=== PATIENT | female | born 1985 | race Caucasian/White ===

== ENCOUNTER 2017-11-02 20:55 | Emergency (ER) | payer OTHER ==
[2017-11-03 00:01] LABS: BASOPHIL % 0.5 % (0-2); PLATELET COUNT 309 x10^3mcL (130-400)
[2017-11-03 00:05] LABS: RED CELL DISTRIBUTION WIDTH 14.7 % (11.5-14.5)
[2017-11-03 00:15] LABS: CARBON DIOXIDE 21.5 mmol/L (21-32); CHLORIDE SERUM 104 mmol/L (98-107); CREATININE SERUM 0.6 mg/dL (0.6-1.0); GFR1 > 60 mL/min; GLUCOSE SERUM 145 mg/dL (74-106); POTASSIUM SERUM 3.5 mmol/L (3.5-5.1); SODIUM SERUM 135 mmol/L (136-145)
[2017-11-03 00:21] LABS: ALKALINE PHOSPHATASE 72 U/L (46-116); ALT/SGPT 146 U/L (14-59); AMYLASE 37 U/L (25-115); AST/SGOT 106 U/L (15-37); BILIRUBIN TOTAL 0.4 mg/dL (0.20-1.00); LIPASE 84 IU/L (73-393)
[2017-11-03 00:22] LABS: ALBUMIN 3.2 g/dL (3.4-5.0)
[2017-11-03 03:40] VITALS: BP 124/73
== END 2017-11-03 03:40 | disposition home or self-care (01) ==
LOC: ED 20:55
PROVIDERS: Emergency Medicine
DX: R10.13 Epigastric pain (principal); K29.70 Gastritis, unspecified, without bleeding; F10.129 Alcohol abuse with intoxication, unspecified; F41.9 Anxiety disorder, unspecified
CPT/HCPCS: G0480; J2270; J2550; J7030; Q0092

== ENCOUNTER 2019-10-25 01:02 | Inpatient (IN) | payer OTHER ==
[~2019-10-25] VITALS: Ht 152.4 cm; Wt 64.0 kg
[2019-10-25 01:18] VITALS: Ht 152.4 cm; Wt 64.0 kg
[2019-10-25 01:56] LABS: BASOPHIL % 0.4 % (0-2)
[2019-10-25 01:58] LABS: PLATELET COUNT 449 x10^3mcL (130-400)
[2019-10-25 02:04] LABS: CALCIUM 7.8 mg/dL (8.5-10.1); CARBON DIOXIDE 21.4 mmol/L (21-32); CHLORIDE SERUM 95 mmol/L (98-107); CREATININE SERUM 2.2 mg/dL (0.6-1.0); GFR1 27 mL/min; GLUCOSE SERUM 141 mg/dL (74-106); POTASSIUM SERUM 3.3 mmol/L (3.5-5.1); SODIUM SERUM 133 mmol/L (136-145)
[2019-10-25 02:06] LABS: ALBUMIN 3.5 g/dL (3.4-5.0); ALKALINE PHOSPHATASE 72 U/L (46-116); ALT/SGPT 30 U/L (14-59); AST/SGOT 26 U/L (15-37); BILIRUBIN TOTAL 0.45 mg/dL (0.20-1.00); TOTAL PROTEIN, SERUM 7.1 g/dL (6.4-8.2)
[2019-10-25] MEDS ORDERED: PROZAC20 MG PO (03:48)
[2019-10-25 04:18] LABS: MAGNESIUM 1.8 mg/dL (1.8-2.4)
[2019-10-25 04:20] LABS: CHOLESTEROL/HDL RATIO 2.5
[2019-10-25 04:26] LABS: T3 TOTAL 0.93 ng/mL
[2019-10-25 04:28] LABS: FREE T4 1.22 ng/dL (0.76-1.46); FREE THYROXINE INDEX 3.2 ug/dL (1.4-4.5); T4(THYROXINE) 8.3 ug/dL (4.7-13.3)
[2019-10-25 04:44] VITALS: BP 117/70
[2019-10-25 04:57] LABS: AMPHETAMINE QUAL UR NONE DETECTED (See below)
[2019-10-25] MEDS ORDERED: FLUOXETINE HCL20 M2 PO (05:49)
[2019-10-25 06:29] LABS: UA SPECIFIC GRAVITY <=1.005 (1.005-1.035); microscopic required? YES; urine erythrocyte 2+ (NEGATIVE)
[2019-10-25 06:31] LABS: ALBUMIN 3.4 g/dL (3.4-5.0); BILIRUBIN TOTAL 0.6 mg/dL (0.20-1.00); CALCIUM 7.5 mg/dL (8.5-10.1); CARBON DIOXIDE 25.3 mmol/L (21-32); POTASSIUM SERUM 3.5 mmol/L (3.5-5.1); TOTAL PROTEIN, SERUM 6.8 g/dL (6.4-8.2)
[2019-10-25 06:34] LABS: BASOPHIL % 0.2 % (0-2)
[2019-10-25 06:50] LABS: PLATELET COUNT 408 x10^3mcL (130-400); RED CELL DISTRIBUTION WIDTH 15.8 % (11.5-14.5)
[2019-10-25 08:51] VITALS: BP 111/63
[2019-10-25 11:10] LABS: AMYLASE 84 U/L (25-115); LIPASE 288 IU/L (73-393)
[2019-10-25 13:17] VITALS: BP 118/75
[2019-10-25 18:07] VITALS: BP 105/71
[2019-10-25 20:45] VITALS: BP 117/71
[2019-10-26 05:10] VITALS: BP 120/67
[2019-10-26 06:32] LABS: BASOPHIL % 0.6 % (0-2); PLATELET COUNT 313 x10^3mcL (130-400)
[2019-10-26 06:54] LABS: RED CELL DISTRIBUTION WIDTH 15.9 % (11.5-14.5)
[2019-10-26 06:59] LABS: CALCIUM 7.8 mg/dL (8.5-10.1); CARBON DIOXIDE 26.4 mmol/L (21-32); CREATININE SERUM 1.3 mg/dL (0.6-1.0); MAGNESIUM 2.1 mg/dL (1.8-2.4); POTASSIUM SERUM 3.1 mmol/L (3.5-5.1)
[2019-10-26 09:17] VITALS: BP 146/87
[2019-10-26 13:10] VITALS: BP 139/90
[2019-10-26 17:35] VITALS: BP 131/80
[2019-10-26 20:21] VITALS: BP 128/83
[2019-10-27 06:11] VITALS: BP 129/82
[2019-10-27 06:50] LABS: BASOPHIL % 0.4 % (0-2); PLATELET COUNT 304 x10^3mcL (130-400)
[2019-10-27 06:55] LABS: CALCIUM 8.7 mg/dL (8.5-10.1); CHLORIDE SERUM 104 mmol/L (98-107); CREATININE SERUM 0.8 mg/dL (0.6-1.0); GFR1 > 60 mL/min; GLUCOSE SERUM 89 mg/dL (74-106); POTASSIUM SERUM 4.5 mmol/L (3.5-5.1); SODIUM SERUM 139 mmol/L (136-145)
[2019-10-27 07:49] VITALS: BP 129/66
[2019-10-27 08:01] LABS: RED CELL DISTRIBUTION WIDTH 15.7 % (11.5-14.5)
[2019-10-27] MEDS ORDERED: THERA-M CAPLET1 EACH PO (08:04)
[2019-10-27] MEDS ORDERED: FOL1 PO (08:04)
[2019-10-27] MEDS ORDERED: THI100 PO (08:04)
[2019-10-27 10:54] VITALS: BP 129/66
[2019-10-27 12:21] VITALS: BP 147/94
== END 2019-10-27 13:11 | disposition home or self-care (01) | DRG 241 ==
LOC: ED 01:02 → DU 03:22
PROVIDERS: Emergency Medicine; ADMIT Internal Medicine
DX: K29.20 Alcoholic gastritis without bleeding (principal); N17.0 Acute kidney failure with tubular necrosis; G92 Toxic encephalopathy; E72.20 Disorder of urea cycle metabolism, unspecified; F10.239 Alcohol dependence with withdrawal, unspecified; F10.229 Alcohol dependence with intoxication, unspecified; E87.2 Acidosis; E83.39 Other disorders of phosphorus metabolism; T51.2X1A Toxic effect of 2-Propanol, accidental (unintentional), initial encounter; E87.6 Hypokalemia; E87.1 Hypo-osmolality and hyponatremia; Z60.2 Problems related to living alone; F32.9 Major depressive disorder, single episode, unspecified; Y90.0 Blood alcohol level of less than 20 mg/100 ml; Z68.24 Body mass index [BMI] 24.0-24.9, adult; Y92.018 Other place in single-family (private) house as the place of occurrence of the external cause; Z79.899 Other long term (current) drug therapy
CPT/HCPCS: 36600; 84439; C9113; G0378; G0480; J2060; J2405; J3411; J3475; J3490; J7030; Q0092

== ENCOUNTER 2020-04-06 12:08 | Inpatient (IN) | payer OTHER ==
[~2020-04-06] VITALS: Ht 160 cm; Wt 63.5 kg
[~2020-04-06 12:08] MED LIST: FLUOXETINE HCL20 M2 PO; FOL1 PO; PROZAC20 MG PO; THERA-M CAPLET1 EACH PO; THI100 PO
[2020-04-06 12:24] VITALS: Ht 160 cm; Wt 63.5 kg
[2020-04-06 13:13] LABS: CALCIUM 8.2 mg/dL (8.5-10.1); CARBON DIOXIDE 19.3 mmol/L (21-32); CHLORIDE SERUM 99 mmol/L (98-107); CREATININE SERUM 0.7 mg/dL (0.6-1.0); GFR1 > 60 mL/min; GLUCOSE SERUM 106 mg/dL (74-106); POTASSIUM SERUM 3.6 mmol/L (3.5-5.1); SODIUM SERUM 138 mmol/L (136-145)
[2020-04-06 13:17] LABS: ALBUMIN 3.4 g/dL (3.4-5.0); ALKALINE PHOSPHATASE 74 U/L (46-116); ALT/SGPT 61 U/L (14-59); AST/SGOT 61 U/L (15-37); BILIRUBIN TOTAL 0.7 mg/dL (0.20-1.00); LIPASE 280 IU/L (73-393); TOTAL PROTEIN, SERUM 7.7 g/dL (6.4-8.2); TRIGLYCERIDES 200 mg/dL (<150)
[2020-04-06 13:21] LABS: CHOLESTEROL 275 mg/dL (<200); CHOLESTEROL/HDL RATIO 2.3; HDL CHOLESTEROL 118 mg/dL (40-60)
[2020-04-06 13:28] LABS: FREE T4 0.99 ng/dL (0.76-1.46); FREE THYROXINE INDEX 2.3 ug/dL (1.4-4.5); T4(THYROXINE) 7.8 ug/dL (4.7-13.3)
[2020-04-06 13:30] LABS: BASOPHIL % 0.3 % (0-2); PLATELET COUNT 141 x10^3mcL (130-400); RED CELL DISTRIBUTION WIDTH 14.1 % (11.5-14.5); T3 TOTAL 0.79 ng/mL
[2020-04-06 14:06] LABS: UA SPECIFIC GRAVITY <=1.005 (1.005-1.035); microscopic required? YES; urine erythrocyte 3+ (NEGATIVE)
[2020-04-06 14:47] LABS: AMPHETAMINE QUAL UR NONE DETECTED (See below)
[2020-04-06] MEDS ORDERED: PROZAC PO (17:13)
[2020-04-06 18:40] VITALS: BP 118/84
[2020-04-06 20:37] VITALS: BP 120/85
[2020-04-07 07:01] LABS: BASOPHIL % 0.2 % (0-2); RED CELL DISTRIBUTION WIDTH 14.4 % (11.5-14.5)
[2020-04-07 07:34] LABS: ALBUMIN 3.4 g/dL (3.4-5.0); ALKALINE PHOSPHATASE 73 U/L (46-116); ALT/SGPT 61 U/L (14-59); AST/SGOT 51 U/L (15-37); BILIRUBIN TOTAL 1.5 mg/dL (0.20-1.00); CARBON DIOXIDE 23.5 mmol/L (21-32); CHLORIDE SERUM 100 mmol/L (98-107); CREATININE SERUM 0.8 mg/dL (0.6-1.0); GFR1 > 60 mL/min; GLUCOSE SERUM 107 mg/dL (74-106); POTASSIUM SERUM 3.8 mmol/L (3.5-5.1); SODIUM SERUM 137 mmol/L (136-145); TOTAL PROTEIN, SERUM 7.5 g/dL (6.4-8.2)
[2020-04-07 07:38] LABS: PLATELET COUNT 117 x10^3mcL (130-400)
[2020-04-07 13:10] VITALS: BP 140/97
[2020-04-07 16:22] VITALS: BP 130/84
[2020-04-07 20:23] VITALS: BP 115/80; BP 156/62
[2020-04-08 05:39] VITALS: BP 141/93
[2020-04-08 05:52] VITALS: BP 139/50
[2020-04-08 07:11] LABS: BASOPHIL % 0.3 % (0-2)
[2020-04-08 07:36] LABS: PLATELET COUNT 107 x10^3mcL (130-400); RED CELL DISTRIBUTION WIDTH 14.8 % (11.5-14.5)
[2020-04-08 07:51] LABS: ALBUMIN 3.3 g/dL (3.4-5.0); ALKALINE PHOSPHATASE 76 U/L (46-116); ALT/SGPT 54 U/L (14-59); AST/SGOT 51 U/L (15-37); BILIRUBIN TOTAL 0.9 mg/dL (0.20-1.00); CALCIUM 8.7 mg/dL (8.5-10.1); CARBON DIOXIDE 25.2 mmol/L (21-32); CHLORIDE SERUM 102 mmol/L (98-107); CREATININE SERUM 0.7 mg/dL (0.6-1.0); GFR1 > 60 mL/min; GLUCOSE SERUM 98 mg/dL (74-106); POTASSIUM SERUM 4.1 mmol/L (3.5-5.1); SODIUM SERUM 138 mmol/L (136-145); TOTAL PROTEIN, SERUM 7.4 g/dL (6.4-8.2)
[2020-04-08 08:35] VITALS: BP 124/85
[2020-04-08 12:55] VITALS: BP 150/97
[2020-04-08 16:36] VITALS: BP 144/106
[2020-04-08 20:45] VITALS: BP 137/88
[2020-04-09 05:48] VITALS: BP 132/88
[2020-04-09 07:09] LABS: BASOPHIL % 0.2 % (0-2)
[2020-04-09 07:30] LABS: PLATELET COUNT 117 x10^3mcL (130-400); RED CELL DISTRIBUTION WIDTH 14.9 % (11.5-14.5)
[2020-04-09 07:38] LABS: ALKALINE PHOSPHATASE 73 U/L (46-116); ALT/SGPT 55 U/L (14-59); AST/SGOT 46 U/L (15-37); BILIRUBIN TOTAL 0.6 mg/dL (0.20-1.00); CALCIUM 8.9 mg/dL (8.5-10.1); CARBON DIOXIDE 24.2 mmol/L (21-32); CHLORIDE SERUM 103 mmol/L (98-107); CREATININE SERUM 0.7 mg/dL (0.6-1.0); GFR1 > 60 mL/min; GLUCOSE SERUM 90 mg/dL (74-106); POTASSIUM SERUM 4.1 mmol/L (3.5-5.1); SODIUM SERUM 138 mmol/L (136-145); TOTAL PROTEIN, SERUM 7.2 g/dL (6.4-8.2)
[2020-04-09 07:40] LABS: ALBUMIN 3.1 g/dL (3.4-5.0)
[2020-04-09 09:21] VITALS: BP 121/82
[2020-04-09] MEDS ORDERED: PRI20 PO (11:00)
[2020-04-09 12:02] VITALS: BP 128/89
[2020-04-09 12:32] VITALS: BP 128/89
== END 2020-04-09 14:25 | disposition home or self-care (01) | DRG 241 ==
LOC: ED 12:08 → DU 15:08
PROVIDERS: Internal Medicine Gastroenterology; Specialist; ADMIT Internal Medicine; ATTEND Internal Medicine
PROC: 0DB68ZX Excision of Stomach, Via Natural or Artificial Opening Endoscopic, Diagnostic (ICD-10-PCS; principal; 2020-04-07 09:00)
DX: K29.71 Gastritis, unspecified, with bleeding (principal); F10.120 Alcohol abuse with intoxication, uncomplicated; Z60.2 Problems related to living alone; F32.9 Major depressive disorder, single episode, unspecified; F41.9 Anxiety disorder, unspecified; Y90.9 Presence of alcohol in blood, level not specified; Z79.899 Other long term (current) drug therapy
CPT/HCPCS: 43235; 83880; 84439; C9113; G0378; G0480; J1200; J1610; J2060; J2250; J2310; J2405; J3010; J3411; J3490; J7030; J7042; Q0092

== ENCOUNTER 2020-05-10 03:28 | Inpatient (IN) | payer OTHER ==
[~2020-05-10] VITALS: Ht 152.4 cm; Wt 63.3 kg
[~2020-05-10 03:28] MED LIST changes: +PRI20 PO; +PROZAC PO
[2020-05-10 03:37] VITALS: Ht 152.4 cm; Wt 63.3 kg
[2020-05-10 04:34] LABS: BASOPHIL % 1.4 % (0-2); PLATELET COUNT 258 x10^3mcL (130-400)
[2020-05-10 04:35] LABS: RED CELL DISTRIBUTION WIDTH 15.8 % (11.5-14.5)
[2020-05-10 04:53] LABS: CARBON DIOXIDE 21.7 mmol/L (21-32); CHLORIDE SERUM 100 mmol/L (98-107); CREATININE SERUM 0.6 mg/dL (0.6-1.0); GFR1 > 60 mL/min; GLUCOSE SERUM 94 mg/dL (74-106); POTASSIUM SERUM 3.6 mmol/L (3.5-5.1); SODIUM SERUM 139 mmol/L (136-145)
[2020-05-10 04:58] LABS: ALBUMIN 3.4 g/dL (3.4-5.0); ALKALINE PHOSPHATASE 72 U/L (46-116); ALT/SGPT 81 U/L (14-59); AMPHETAMINE QUAL UR NONE DETECTED (See below); AST/SGOT 93 U/L (15-37); BILIRUBIN TOTAL 0.55 mg/dL (0.20-1.00); LIPASE 311 IU/L (73-393); TOTAL PROTEIN, SERUM 7.3 g/dL (6.4-8.2)
[2020-05-10 11:08] VITALS: BP 103/72
[2020-05-10 11:50] VITALS: BP 97/61
[2020-05-10 16:40] VITALS: BP 125/73
[2020-05-10 19:58] VITALS: BP 120/78
[2020-05-11 05:51] VITALS: BP 122/83
[2020-05-11 07:07] LABS: BASOPHIL % 0.4 % (0-2); PLATELET COUNT 196 x10^3mcL (130-400)
[2020-05-11 07:35] LABS: ALKALINE PHOSPHATASE 63 U/L (46-116); ALT/SGPT 60 U/L (14-59); AST/SGOT 53 U/L (15-37); BILIRUBIN TOTAL 1.38 mg/dL (0.20-1.00); CALCIUM 7.7 mg/dL (8.5-10.1); CARBON DIOXIDE 26.6 mmol/L (21-32); CHLORIDE SERUM 102 mmol/L (98-107); CREATININE SERUM 0.7 mg/dL (0.6-1.0); GFR1 > 60 mL/min; GLUCOSE SERUM 96 mg/dL (74-106); POTASSIUM SERUM 3.4 mmol/L (3.5-5.1); SODIUM SERUM 137 mmol/L (136-145); TOTAL PROTEIN, SERUM 6.6 g/dL (6.4-8.2)
[2020-05-11 07:38] LABS: ALBUMIN 3.1 g/dL (3.4-5.0)
[2020-05-11 08:10] VITALS: BP 128/81
[2020-05-11] MEDS ORDERED: OMEPRAZOLE40 M1 PO (12:19)
[2020-05-11] MEDS ORDERED: FOL1 PO (12:19)
[2020-05-11] MEDS ORDERED: THI100 PO (12:20)
[2020-05-11 12:49] VITALS: BP 128/81
[2020-05-11 13:27] VITALS: BP 117/78
[2020-05-11 16:38] VITALS: BP 116/80
== END 2020-05-11 17:30 | disposition home or self-care (01) | DRG 241 ==
LOC: ED 03:28 → MU 05:37 → ED 05:37 → DU 05:37 → MU 08:49
PROVIDERS: Specialist; ADMIT Internal Medicine; ATTEND Internal Medicine
DX: K29.71 Gastritis, unspecified, with bleeding (principal); F10.120 Alcohol abuse with intoxication, uncomplicated; F32.9 Major depressive disorder, single episode, unspecified; F41.9 Anxiety disorder, unspecified; Z20.828 Contact with and (suspected) exposure to other viral communicable diseases; Z60.2 Problems related to living alone; Y90.9 Presence of alcohol in blood, level not specified; Z79.899 Other long term (current) drug therapy
CPT/HCPCS: C9113; G0378; G0480; J2405; J3490; J7030; J7042; Q0092

== ENCOUNTER 2020-06-07 12:24 | Inpatient (IN) | payer OTHER, SELFPAY ==
[~2020-06-07] VITALS: Ht 152.4 cm; Wt 59.9 kg
[~2020-06-07 12:24] MED LIST changes: +OMEPRAZOLE40 M1 PO
[2020-06-07 12:36] VITALS: Ht 152.4 cm; Wt 59.9 kg
[2020-06-07 13:17] LABS: BASOPHIL % 0.5 % (0-2)
[2020-06-07 13:18] LABS: PLATELET COUNT 67 x10^3mcL (130-400); RED CELL DISTRIBUTION WIDTH 15.6 % (11.5-14.5)
[2020-06-07 13:44] LABS: CALCIUM 8.1 mg/dL (8.5-10.1); CARBON DIOXIDE 24.9 mmol/L (21-32); CHLORIDE SERUM 95 mmol/L (98-107); CREATININE SERUM 0.7 mg/dL (0.6-1.0); GFR1 > 60 mL/min; GLUCOSE SERUM 103 mg/dL (74-106); POTASSIUM SERUM 3.5 mmol/L (3.5-5.1); SODIUM SERUM 134 mmol/L (136-145)
[2020-06-07 13:56] LABS: ALKALINE PHOSPHATASE 84 U/L (46-116); ALT/SGPT 254 U/L (14-59); AST/SGOT 275 U/L (15-37); BILIRUBIN TOTAL 1.4 mg/dL (0.20-1.00); MAGNESIUM 2.2 mg/dL (1.8-2.4); T4(THYROXINE) 7.1 ug/dL (4.7-13.3)
[2020-06-07 14:01] LABS: CHOLESTEROL 374 mg/dL (<200)
[2020-06-07 14:47] LABS: LIPASE 2369 IU/L (73-393)
[2020-06-07 14:56] LABS: UA SPECIFIC GRAVITY 1.025 (1.005-1.035); microscopic required? YES; urine erythrocyte 3+ (NEGATIVE)
[2020-06-07 15:08] LABS: AMPHETAMINE QUAL UR NONE DETECTED (See below)
[2020-06-07 18:18] VITALS: BP 140/80
[2020-06-07 20:44] VITALS: BP 126/70
[2020-06-07 22:30] VITALS: BP 132/74
[2020-06-08] VITALS (7 sets, daily range): BP systolic 103–136; BP diastolic 58–94
[2020-06-08 06:34] LABS: BASOPHIL % 0.2 % (0-2)
[2020-06-08 06:55] LABS: ALKALINE PHOSPHATASE 69 U/L (46-116); ALT/SGPT 184 U/L (14-59); AST/SGOT 185 U/L (15-37); BILIRUBIN TOTAL 1.42 mg/dL (0.20-1.00); CALCIUM 7.7 mg/dL (8.5-10.1); CARBON DIOXIDE 24.7 mmol/L (21-32); CHLORIDE SERUM 99 mmol/L (98-107); CREATININE SERUM 0.6 mg/dL (0.6-1.0); GFR1 > 60 mL/min; GLUCOSE SERUM 82 mg/dL (74-106); MAGNESIUM 1.8 mg/dL (1.8-2.4); PHOSPHOROUS 2.3 mg/dL (2.5-4.9); SODIUM SERUM 136 mmol/L (136-145); TOTAL PROTEIN, SERUM 6.8 g/dL (6.4-8.2)
[2020-06-08 06:57] LABS: ALBUMIN 3.3 g/dL (3.4-5.0)
[2020-06-08 07:53] LABS: LIPASE 4060 IU/L (73-393)
[2020-06-08 08:23] LABS: RED CELL DISTRIBUTION WIDTH 15.8 % (11.5-14.5)
[2020-06-08 08:31] LABS: PLATELET COUNT 48 x10^3mcL (130-400)
[2020-06-09 02:30] VITALS: BP 149/97
[2020-06-09 05:34] VITALS: BP 130/83
[2020-06-09 07:08] LABS: BASOPHIL % 0.4 % (0-2)
[2020-06-09 07:28] LABS: ALBUMIN 3.2 g/dL (3.4-5.0); ALKALINE PHOSPHATASE 67 U/L (46-116); ALT/SGPT 183 U/L (14-59); AST/SGOT 164 U/L (15-37); BILIRUBIN TOTAL 1.06 mg/dL (0.20-1.00); CALCIUM 7.8 mg/dL (8.5-10.1); CARBON DIOXIDE 25.8 mmol/L (21-32); CHLORIDE SERUM 102 mmol/L (98-107); CREATININE SERUM 0.5 mg/dL (0.6-1.0); GFR1 > 60 mL/min; GLUCOSE SERUM 88 mg/dL (74-106); MAGNESIUM 1.5 mg/dL (1.8-2.4); PHOSPHOROUS 3.2 mg/dL (2.5-4.9); SODIUM SERUM 137 mmol/L (136-145); TOTAL PROTEIN, SERUM 6.6 g/dL (6.4-8.2)
[2020-06-09 07:59] LABS: RED CELL DISTRIBUTION WIDTH 15.7 % (11.5-14.5)
[2020-06-09 08:00] LABS: PLATELET COUNT 50 x10^3mcL (130-400)
[2020-06-09 08:11] VITALS: BP 129/93
[2020-06-09 08:14] LABS: LIPASE 2869 IU/L (73-393)
[2020-06-09 14:33] VITALS: BP 123/82
[2020-06-09 16:54] VITALS: BP 125/83
[2020-06-09 20:35] VITALS: BP 134/89
[2020-06-10 04:50] VITALS: BP 134/97
[2020-06-10 07:02] LABS: BASOPHIL % 0.4 % (0-2)
[2020-06-10 07:19] LABS: ALBUMIN 3.4 g/dL (3.4-5.0); ALKALINE PHOSPHATASE 71 U/L (46-116); ALT/SGPT 204 U/L (14-59); AST/SGOT 172 U/L (15-37); BILIRUBIN TOTAL 0.88 mg/dL (0.20-1.00); CALCIUM 8.6 mg/dL (8.5-10.1); CHLORIDE SERUM 104 mmol/L (98-107); CREATININE SERUM 0.5 mg/dL (0.6-1.0); GFR1 > 60 mL/min; GLUCOSE SERUM 100 mg/dL (74-106); PHOSPHOROUS 4.3 mg/dL (2.5-4.9); PLATELET COUNT 67 x10^3mcL (130-400); POTASSIUM SERUM 3.7 mmol/L (3.5-5.1); RED CELL DISTRIBUTION WIDTH 15.7 % (11.5-14.5); SODIUM SERUM 138 mmol/L (136-145); TOTAL PROTEIN, SERUM 6.8 g/dL (6.4-8.2)
[2020-06-10 07:37] LABS: LIPASE 2762 IU/L (73-393)
[2020-06-10 09:57] VITALS: BP 119/70
[2020-06-10 11:32] VITALS: BP 119/70
== END 2020-06-10 13:40 | disposition home or self-care (01) | DRG 282 ==
LOC: ED 12:24 → DU 16:24 → MU 16:24 → DU 18:30
PROVIDERS: Emergency Medicine; ADMIT Hospitalist; ATTEND Hospitalist
DX: K85.20 Alcohol induced acute pancreatitis without necrosis or infection (principal); D69.6 Thrombocytopenia, unspecified; F41.9 Anxiety disorder, unspecified; F32.9 Major depressive disorder, single episode, unspecified; Z60.2 Problems related to living alone; Z20.828 Contact with and (suspected) exposure to other viral communicable diseases; F10.20 Alcohol dependence, uncomplicated; Y90.9 Presence of alcohol in blood, level not specified; E78.5 Hyperlipidemia, unspecified; E87.6 Hypokalemia; Z83.3 Family history of diabetes mellitus; Z71.41 Alcohol abuse counseling and surveillance of alcoholic
CPT/HCPCS: 82962; 83880; C9113; G0378; G0480; J0610; J1170; J1650; J2060; J2405; J2765; J3411; J3475; J3480; J3490; J7030; Q0092; U0003

== ENCOUNTER 2020-07-25 21:16 | Emergency (ER) | payer OTHER ==
[~2020-07-25] VITALS: Ht 162.6 cm; Wt 65.8 kg
[2020-07-25 22:37] VITALS: Ht 162.6 cm; Wt 65.8 kg
[2020-07-26 01:08] LABS: BASOPHIL % 0.7 % (0-2); PLATELET COUNT 358 x10^3mcL (130-400); RED CELL DISTRIBUTION WIDTH 12.6 % (11.5-14.5)
[2020-07-26 01:13] LABS: CALCIUM 7.4 mg/dL (8.5-10.1); CARBON DIOXIDE 22.7 mmol/L (21-32); CHLORIDE SERUM 103 mmol/L (98-107); CREATININE SERUM 0.7 mg/dL (0.6-1.0); GFR1 > 60 mL/min; GLUCOSE SERUM 97 mg/dL (74-106); POTASSIUM SERUM 3.7 mmol/L (3.5-5.1); SODIUM SERUM 143 mmol/L (136-145)
[2020-07-26 01:19] LABS: ALBUMIN 3.3 g/dL (3.4-5.0); ALKALINE PHOSPHATASE 81 U/L (46-116); ALT/SGPT 85 U/L (14-59); AST/SGOT 73 U/L (15-37); BILIRUBIN TOTAL 0.43 mg/dL (0.20-1.00); LIPASE 158 IU/L (73-393); TOTAL PROTEIN, SERUM 7.3 g/dL (6.4-8.2)
[2020-07-26 03:37] LABS: microscopic required? YES; urine erythrocyte 1+ (NEGATIVE)
[2020-07-26 05:54] VITALS: BP 116/71
== END 2020-07-26 05:54 | disposition home or self-care (01) ==
LOC: ED 21:16
PROVIDERS: Emergency Medicine
DX: F10.129 Alcohol abuse with intoxication, unspecified (principal); E78.00 Pure hypercholesterolemia, unspecified
CPT/HCPCS: G0480

== ENCOUNTER 2020-08-05 17:22 | Emergency (ER) | payer OTHER ==
[~2020-08-05] VITALS: Ht 152.4 cm; Wt 59.0 kg
[2020-08-05 19:17] VITALS: Ht 152.4 cm; Wt 59.0 kg
[2020-08-06 02:40] LABS: BASOPHIL % 0.3 % (0.2-1.3); RED CELL DISTRIBUTION WIDTH 14.1 % (12.3-17.7)
[2020-08-06 02:43] LABS: PLATELET COUNT 94 x10^3mcL (179-408)
[2020-08-06 02:51] LABS: CALCIUM 7.2 mg/dL (8.5-10.1); CARBON DIOXIDE 20.2 mmol/L (21-32); CHLORIDE SERUM 99 mmol/L (98-107); CREATININE SERUM 0.8 mg/dL (0.6-1.0); GFR1 > 60 mL/min; GLUCOSE SERUM 104 mg/dL (74-106); POTASSIUM SERUM 3.5 mmol/L (3.5-5.1); SODIUM SERUM 138 mmol/L (136-145)
[2020-08-06 03:04] LABS: ALKALINE PHOSPHATASE 91 U/L (46-116); ALT/SGPT 201 U/L (14-59); AST/SGOT 208 U/L (15-37); BILIRUBIN TOTAL 0.61 mg/dL (0.20-1.00); CHOLESTEROL 221 mg/dL (<200); CHOLESTEROL/HDL RATIO 5.5; HDL CHOLESTEROL 40 mg/dL (40-60); LIPASE 349 IU/L (73-393); TOTAL PROTEIN, SERUM 6.9 g/dL (6.4-8.2); TRIGLYCERIDES 604 mg/dL (<150)
[2020-08-06 04:13] VITALS: BP 136/82
[2020-08-06 07:37] LABS: rbc morphology (normal/abnorm) NORMAL (NORMAL)
== END 2020-08-06 04:13 | disposition home or self-care (01) ==
LOC: ED 17:22
PROVIDERS: Specialist
DX: R06.4 Hyperventilation (principal); F41.9 Anxiety disorder, unspecified; F10.20 Alcohol dependence, uncomplicated
CPT/HCPCS: 83880; J2060; J2405; J7030

== ENCOUNTER 2020-08-14 11:29 | Emergency (ER) | payer OTHER ==
[~2020-08-14] VITALS: Ht 160 cm; Wt 72.6 kg
[2020-08-14 16:00] VITALS: Ht 160 cm; Wt 72.6 kg
[2020-08-14 18:00] VITALS: BP 132/70
== END 2020-08-14 18:00 | disposition home or self-care (01) ==
LOC: ED 11:29
DX: F10.229 Alcohol dependence with intoxication, unspecified (principal); E78.00 Pure hypercholesterolemia, unspecified; R11.0 Nausea; Z20.822 Contact with and (suspected) exposure to COVID-19; Y90.9 Presence of alcohol in blood, level not specified
CPT/HCPCS: J2060; J2405; J3411; J3475; J3490; J7030

== ENCOUNTER 2020-10-07 02:34 | Emergency (ER) | payer OTHER ==
[~2020-10-07] VITALS: Ht 152.4 cm; Wt 63.5 kg
[2020-10-07 02:43] VITALS: Ht 152.4 cm; Wt 63.5 kg
[2020-10-07 03:36] LABS: BASOPHIL % 0.7 % (0.2-1.3)
[2020-10-07 03:38] LABS: PLATELET COUNT 349 x10^3mcL (179-408)
[2020-10-07 03:39] LABS: RED CELL DISTRIBUTION WIDTH 14.9 % (12.3-17.7)
[2020-10-07 03:46] LABS: rbc morphology (normal/abnorm) NORMAL (NORMAL)
[2020-10-07 04:22] LABS: CARBON DIOXIDE 21.8 mmol/L (21-32); CHLORIDE SERUM 101 mmol/L (98-107); CREATININE SERUM 0.8 mg/dL (0.6-1.0); GFR1 > 60 mL/min; GLUCOSE SERUM 114 mg/dL (74-106); POTASSIUM SERUM 3.5 mmol/L (3.5-5.1); SODIUM SERUM 139 mmol/L (136-145)
[2020-10-07 04:28] LABS: ALBUMIN 3.6 g/dL (3.4-5.0); ALKALINE PHOSPHATASE 86 U/L (46-116); ALT/SGPT 43 U/L (14-59); AST/SGOT 36 U/L (15-37); BILIRUBIN TOTAL 0.41 mg/dL (0.20-1.00); LIPASE 64 IU/L (73-393)
[2020-10-07 04:36] LABS: AMPHETAMINE QUAL UR NONE DETECTED (See below)
[2020-10-07 07:55] VITALS: BP 125/87
== END 2020-10-07 07:55 | disposition home or self-care (01) ==
LOC: ED 02:34
PROVIDERS: Emergency Medicine
DX: F10.129 Alcohol abuse with intoxication, unspecified (principal); R11.2 Nausea with vomiting, unspecified; R10.13 Epigastric pain; E78.00 Pure hypercholesterolemia, unspecified; Z20.822 Contact with and (suspected) exposure to COVID-19
CPT/HCPCS: G0480; J1885; J2405; J7030